=== PATIENT | female | born 1940 | race Caucasian/White ===

== ENCOUNTER → 2017-06-11 | Outpatient (CLI) | payer OTHER ==
[~2017-06-11] MED LIST: ASPI81TA28 PO; AZEL137S6 PO; COEN1CAP17 PO; METO-217 PO; MOME50SP5; MULT-260 PO
[2017-06-11 07:41] LABS: BASO % 0.6 %; BASO ABS # 0.03 K/uL (0-0.2); EOS % 5.3 %; EOS ABS # 0.28 K/uL (0-0.5); HEMATOCRIT 44.1 % (37-47); HEMOGLOBIN 14.8 g/dL (12.0-16.0); IG# 0.02 K/uL (0.00-0.02); LYMPH % 25.8 %; LYMPH ABS # 1.37 K/uL (1.2-3.4); MEAN CELL VOLUME 91.1 fL (80-100); MEAN CORPUSCULAR HEMOGLOBIN 30.6 pg (25-34); MEAN CORPUSCULAR HGB CONC 33.6 g/dl (32-36); MEAN PLATELET VOLUME 9.9 fL (7.4-10.4); MONO % 8.7 %; MONO ABS # 0.46 K/uL (0.11-0.59); NEUT % 59.2 %; NEUT ABS # 3.15 K/uL (1.4-6.5); PLATELET COUNT 212 K/uL (130-400); RED CELL DISTRIBUTION WIDTH CV 13.2 % (11.5-14.5); RED CELL DISTRIBUTION WIDTH SD 44.3 fL (36.4-46.3); WHITE BLOOD COUNT 5.31 K/uL (4.8-10.8)
[2017-06-11 08:04] LABS: ALBUMIN 3.7 gm/dl (3.4-5.0); ALT/SGPT 30 U/L (12-78); BLOOD UREA NITROGEN 23 mg/dl (7-18); CALCIUM 9.3 mg/dl (8.5-10.1); CARBON DIOXIDE 27 mmol/L (21-32); CREATININE 0.84 mg/dl (0.60-1.20); GLUCOSE 88 mg/dl (70-99); POTASSIUM 4.9 mmol/L (3.5-5.1); SODIUM 139 mmol/L (136-145)
[2017-06-11 08:36] LABS: ALKALINE PHOSPHATASE 106 U/L (45-117); AST/SGOT 23 U/L (15-37); TOTAL PROTEIN 7.8 gm/dl (6.4-8.2)
== END | disposition home or self-care (01) ==
LOC: C.LAB 07:17
PROVIDERS: ATTEND Nurse Practitioner Family
DX: C83.04 Small cell B-cell lymphoma, lymph nodes of axilla and upper limb (principal)

== ENCOUNTER 2024-01-14 10:20 | Inpatient (IN) ==
--- NOTE | 2023-12-05 10:40 | PAT Medication Instructions ---
Medication Instructions Date of Service December 05, 2023 Home Medications Allergy Injections 1 dose INJ UD Ivig Infusions 1 dose IV UD PRN Tums 750 mg PO UD PRN aspirin 81 mg capsule 81 mg PO QAM famotidine 20 mg tablet 20 mg PO BID ipratropium bromide 42 mcg (0.06 %) nasal spray 2 spray intranasal UD PRN levocetirizine 5 mg tablet (Xyzal) 5 mg PO HS metoprolol succinate 50 mg tablet,extended release 24 hr 50 mg PO QAM multivitamin 1 tab PO QAM triamcinolone acetonide 0.025 % topical cream 1 applic topical DAILY PRN Continue as directed ipratropium bromide 42 mcg (0.06 %) nasal spray 2 spray intranasal UD PRN(if needed) ASK your prescriber and surgeon Allergy Injections 1 dose INJ UD Ivig Infusions 1 dose IV UD PRN aspirin 81 mg capsule 81 mg PO QAM STOP taking 24 hours before surgery triamcinolone acetonide 0.025 % topical cream 1 applic topical DAILY PRN DO NOT take the morning of surgery Tums 750 mg PO UD PRN multivitamin 1 tab PO QAM Take morning of surgery With a small sip of water, OTHERWISE NOTHING TO EAT OR DRINK AFTER MIDNIGHT: famotidine 20 mg tablet 20 mg PO BID metoprolol succinate 50 mg tablet,extended release 24 hr 50 mg PO QAM Take evening before surgery famotidine 20 mg tablet 20 mg PO BID levocetirizine 5 mg tablet (Xyzal) 5 mg PO HS Other Notes If you have any questions please call us at [phone] or [phone] or [phone] or [phone]
--- NOTE | 2023-12-11 13:52 | Anesthesiology Consultation ---
Date of Service December 11, 2023 Assessment & Plan (1) Encounter for pre-operative examination: - Infectious disease screening: Per assessment on 12/11/23: No known recent infectious disease contacts or current infectious disease symptoms. - Outpatient joint assessment: Pt surgeon paperwork/patient, plan for overnight stay post-operatively (OR made aware). If surgeon requests review for outpatient joint pathway, would need to review further after preop EKG evaluation completed. - Anesthesia concern: Patient voices concern of post-op memory impairment and requests avoiding/limiting medications more likely to cause memory impairment if/when possible. - Abnormal preop EKG: Preop EKG notes LBBB. Not noted on available comparison EKG. No recent/previous Echo/hx per patient. Case reviewed with Dr. Soto. Recommend preop cardiac evaluation. Patient/surgeon's office made aware. [facility] personnel associate forwarded cardiac request to RUBINA Whitney. - Patient acceptable risk for surgery pending surgeon-ordered PCP clearance (Dr. Jaye High, "already done" per patient) and anesthesia-ordered cardiac clearance (RUBINA Whitney, appt 12/26). Chart Review Chart Review: Patient seen in Pre Admission Testing Teaching & Discussion Pre-Anesthesia Teaching/Discussion Notes: Instructed NPO after midnight before surgery,except medications with 15 cc of water. Medication instructions provided according to the PAT guidelines. History Surgery Operation Date: 01/14/24 11:10 Proposed Procedures p Right Total Knee Arthroplasty - Peewee Wilkins MD Height/Weight Height: 5 ft 5 in Weight: 96.1 kg Allergies Allergy/AdvReac Type Severity Reaction Status Date / Time aluminum Allergy Severe 3x3 Wheel Verified 11/26/23 13:53 after injection diphtheria toxoid,fluid Allergy Severe 3x3 Wheel Verified 11/26/23 13:53 after injection pneumococcal vaccine Allergy Severe 3x3 Wheel Verified 11/26/23 13:53 after injection sorbitan esters Allergy Severe 3x3 Wheel Verified 11/26/23 13:53 after injection diltiazem Allergy lower leg Verified 11/26/23 13:57 edema nitrofurantoin Allergy Hives Verified 11/26/23 13:57 [From Macrobid] pneumococcal 7-valent Allergy 3x3 Wheel Verified 11/26/23 13:57 conjugate to after [From Prevnar] injection meperidine AdvReac Intermediate Hallucinati Verified 12/11/23 14:12 ons Medications Home Medications Medication Instructions Recorded Confirmed Last Taken Allergy Injections 1 dose INJ UD 11/26/23 11/26/23 Unknown Ivig Infusions 1 dose IV UD PRN cold season 11/26/23 11/26/23 Unknown Tums 750 mg PO UD PRN gerd 11/26/23 11/26/23 Unknown aspirin 81 mg capsule 81 mg PO QAM 11/26/23 11/26/23 Unknown famotidine 20 mg tablet 20 mg PO BID 11/26/23 11/26/23 Unknown ipratropium bromide 42 mcg (0.06 2 spray intranasal UD PRN 11/26/23 11/26/23 Unknown %) nasal spray Congestion levocetirizine 5 mg tablet (Xyzal) 5 mg PO HS 11/26/23 11/26/23 Unknown metoprolol succinate 50 mg 50 mg PO QAM 11/26/23 11/26/23 Unknown tablet,extended release 24 hr multivitamin 1 tab PO QAM 11/26/23 11/26/23 Unknown triamcinolone acetonide 0.025 % 1 applic topical DAILY PRN eczema 11/26/23 11/26/23 Unknown topical cream Past Medical History Medical History Environmental and seasonal allergies Allergy shots every 3-4 weeks GERD (gastroesophageal reflux disease) Hiatal hernia History of asthma Follows with Dr. Yoo/Cornelius pulmonary Hypertension MGUS (monoclonal gammopathy of unknown significance) Non Hodgkin's lymphoma Dx 2014, hx Rituxin Follows with CCP Post-nasal drip Spinal stenosis Thyroid nodule Under surveillance by PCP/CCP Exercise / Class Metabolic Activity III < 4 Walking/Shop/Light housework Past Surgical History Surgical History History of right mastoidectomy Hx of appendectomy Hx of colonoscopy Hx of dilation and curettage Hx of tonsillectomy Social History Smoking Status: Never smoker Do You Dip or Chew Tobacco: No Hx Alcohol Use: Yes alcohol intake frequency: holidays/special occasions only Hx Substance Use: No substance use type: does not use Review of Systems Seasonal allergies- chronic congestion/at baseline. Patient denies chest pain, shortness of breath, fever, chills, cough, wheezing, palpitations. Physical Exam Vital Signs BP 111/70 P 85 TEMP 99.5 SP02 95%RA RESP 16 Physical Full cervical extension range of motion. Full TMJ range of motion. TMD > 3.5 finger breaths Mallampati Score 1 Dentition: intact, + crowns Lungs: clear throughout to auscultation Cardiac: regular rate and rhythm, no murmurs noted Spine: normal Carotid arteries: negative bruit Extremities: wearing compression stockings Lab Results Anesthesia Preop Results Results Anesthesia Widget: WBC 6.26 K/ul (4.8-10.8) 12/11/23 Hgb 12.2 g/dl (12.0-16.0) 12/11/23 Hct 37.8 % (37.0-47.0) 12/11/23 Plt 308 K/uL (130-400) 12/11/23 Na 137 mmol/L (136-145) 12/11/23 K 4.2 mmol/L (3.5-5.1) 12/11/23 Cl 104 mmol/L (98-107) 12/11/23 CO2 26 mmol/L (21-32) 12/11/23 BUN 20 mg/dl (6-23) 12/11/23 Creat 0.72 mg/dl (0.6-1.2) 12/11/23 Glucose Level 87 mg/dl (70-99(Fasting)) 12/11/23 PT 10.5 Seconds (9.0-12.0) 12/11/23 PTT 25 Seconds (21-31) 12/11/23 INR 1.0 (0.9-1.1) 12/11/23 Blood Type O Negative 12/11/23 Antibody Screen NEGATIVE 12/11/23 Testing Laboratory Results UA (12/13/23): negative Electrocardiogram Date: 12/11/23 NSR at 78bpm. LBBB. Chest X-Ray Date: 12/11/23 FINDINGS: No pneumothorax. No pleural effusion. There is a moderate hiatus hernia. The cardiac silhouette is top normal in size. No focal lung consolidations to suggest a pneumonia. No evidence for pulmonary edema. There is a mildly tortuous thoracic aorta. No acute fractures. A few small bibasilar linear densities favor subsegmental atelectasis or scarring. IMPRESSION: No acute process within the chest. Small hiatus hernia.
--- NOTE | 2024-01-09 08:13 | History & Physical Report ---
Date of Service January 09, 2024 Assessment & Plan (1) DJD (degenerative joint disease) of knee: Plan: Right total knee replacement with patient's specific implants patient will be admitted for observation and plans to stay at the [facility] History of Present Illness Chief Complaint: Right knee pain Primary Care Provider: Jaye High MD Patient is an 83-year-old female with a long history of bilateral knee pain right greater than left. This associated with instability limping weakness and marked decrease in range of motion. She rates her pain as an 8 out of 10. She has tried both Visco and stem cell injections without relief. She requires a cane for all activities of daily living. She has radiographic evidence of severe end-stage arthritis of both knees and is admitted for elective knee replacement surgery. She has a history of non-Hodgkin's lymphoma. Allergies Allergy/AdvReac Type Severity Reaction Status Date / Time aluminum Allergy Severe 3x3 Wheel Verified 11/26/23 13:53 after injection diphtheria toxoid,fluid Allergy Severe 3x3 Wheel Verified 11/26/23 13:53 after injection pneumococcal vaccine Allergy Severe 3x3 Wheel Verified 11/26/23 13:53 after injection sorbitan esters Allergy Severe 3x3 Wheel Verified 11/26/23 13:53 after injection diltiazem Allergy lower leg Verified 11/26/23 13:57 edema nitrofurantoin Allergy Hives Verified 11/26/23 13:57 [From Macrobid] pneumococcal 7-valent Allergy 3x3 Wheel Verified 11/26/23 13:57 conjugate to after [From Prevnar] injection meperidine AdvReac Intermediate Hallucinati Verified 12/11/23 14:12 ons Home Medications Medication Instructions Recorded Confirmed Type Allergy Injections 1 dose INJ UD 11/26/23 11/26/23 History Ivig Infusions 1 dose IV UD PRN cold season 11/26/23 11/26/23 History Tums 750 mg PO UD PRN gerd 11/26/23 11/26/23 History aspirin 81 mg capsule 81 mg PO QAM 11/26/23 11/26/23 History famotidine 20 mg tablet 20 mg PO BID 11/26/23 11/26/23 History ipratropium bromide 42 mcg (0.06 2 spray intranasal UD PRN 11/26/23 11/26/23 History %) nasal spray Congestion levocetirizine 5 mg tablet (Xyzal) 5 mg PO HS 11/26/23 11/26/23 History metoprolol succinate 50 mg 50 mg PO QAM 11/26/23 11/26/23 History tablet,extended release 24 hr multivitamin 1 tab PO QAM 11/26/23 11/26/23 History triamcinolone acetonide 0.025 % 1 applic topical DAILY PRN eczema 11/26/23 11/26/23 History topical cream Past Med/Surg History Problem List (Updated 01/09/24 @ 08:12 by Peewee Wilkins MD) DJD (degenerative joint disease) of knee Encounter for pre-operative examination Medical History Spinal stenosis Thyroid nodule Under surveillance by PCP/CCP Hiatal hernia History of asthma Follows with Dr. Yoo/Cornelius pulmonary Environmental and seasonal allergies Allergy shots every 3-4 weeks Post-nasal drip Hypertension GERD (gastroesophageal reflux disease) MGUS (monoclonal gammopathy of unknown significance) Non Hodgkin's lymphoma Dx 2014, hx Rituxin Follows with CCP Surgical History History of right mastoidectomy Hx of dilation and curettage Hx of tonsillectomy Hx of appendectomy Hx of colonoscopy Social History Smoking Status: Never smoker Second Hand Exposure: No; Do You Dip or Chew Tobacco: No; Tobacco Cessation Education Requested by Patient: No Hx Alcohol Use: Yes Hx Substance Use: No Preferred Language: Tanzanian Communication Ability: Effective Drying Room Attendant Required: No Beliefs That Will Affect Care: None Current Living Situation: Alone Current Living Situation Comment: lives at [facility] in snf community; will stay at in rehab Other Information That Helps Us Care for You: No Feels Safe at Home: Yes Safety Concerns: Feels Safe At This Time Assistive Devices: Cane, Glasses and Other Assistive Devices Comment: glasses for driving; rollator in home Review of Systems Review of Systems: Knee pain and weakness Physical Exam Physical Exam: Weight 96 kg BMI 38 General: Obese woman who appears her stated age. HEENT: NCAT, EOMI, PERRLA. Neck: Supple no bruits Heart: Regular rate and rhythm no murmurs Lungs: Breath sounds clear and present in all leon Abdomen: Obese soft nontender bowel sounds positive Extremities: The right knee shows valgus deformity passive range of motion is 5 to 110 degrees flexion with 3 to 4 mm lateral laxity positive effusion and pain Neurological and vascular: Intact Results & Data Results & Data Vital Signs (Past 12 Hours) Blood pressure 130/78 Pulse 68
[~2024-01-14 10:20] MED LIST changes: -ASPI81TA28 PO; -AZEL137S6 PO; +BUPIVACAINE 0.5 % 5 MG/1 ML PF 10ML VIAL ONE; -COEN1CAP17 PO; -METO-217 PO; -MOME50SP5; -MULT-260 PO; +ROPIVACAINE 0.5% 5 MG/ML 30 ML VIAL ONE
[2024-01-14] MEDS: dexAMETHasone**PF** 10 MG/ML VIAL IV SCH (11:01)
[2024-01-14] MEDS: ACETAMINOPHEN 500 MG TAB PO SCH (11:01)
[2024-01-14] MEDS: traMADol HCL 50 MG TABLET PO SCH (11:02)
[2024-01-14] MEDS: CeleBREX 200 MG CAP PO SCH (11:03)
[2024-01-14] MEDS: FAMOTIDINE 20 MG TAB PO SCH (11:03)
[2024-01-14] MEDS: GABAPENTIN 300 MG CAP PO SCH (11:03)
[2024-01-14] MEDS: LR 60ML/HR IV SCH (11:04)
[2024-01-14] MEDS: METOPROLOL SUCC 50MG EXT REL TAB PO ONE (11:05)
[2024-01-14] MEDS: METOCLOPRAMIDE HCL 10 MG TABLET PO SCH (11:05)
[2024-01-14] MEDS: LR 500ML BOLUS, THEN 15ML/HR IV SCH (11:30)
[2024-01-14] MEDS ORDERED: MIDAZOLAM HCL 1 MG/ML 2ML VIAL ONE (12:00)
[2024-01-14] MEDS ORDERED: fentaNYL citrate PF 100 MCG/2 ML VIAL ONE (12:00)
--- NOTE | 2024-01-14 12:35 | History & Physical Bridge Note ---
Date of Service January 14, 2024 History & Physical Bridge Note I have examined the patient, reviewed the History & Physical and in the interval since the performance of the History & Physical I have noted the following changes of clinical significance: no changes noted
[2024-01-14] MEDS ORDERED: PROPOFOL IV EMULSION 10 MG/ML 20 ML VIAL IV ONE (12:59)
[2024-01-14] MEDS ORDERED: ONDANSETRON INJ 2 MG/ML 2 ML VIAL ONE (12:59)
[2024-01-14] MEDS: TRANEXAMIC ACID 1,000 MG **IV Pre-op IV SCH (13:05)
[2024-01-14] MEDS ORDERED: ONDANSETRON INJ 2 MG/ML 2 ML VIAL IV PRN ×2 (13:30→16:47)
[2024-01-14] MEDS ORDERED: ATROPINE SULFATE 0.1 MG/ML 10ML SYR IV PRN (13:30)
[2024-01-14] MEDS ORDERED: ePHEDrine sulfate 50 MG/ML AMP IV PRN (13:30)
[2024-01-14] MEDS: ceFAZolin 2000MG 2,000 MG/15 ML SYR IV SCH ×2 (13:31→21:34)
[2024-01-14] MEDS ORDERED: PHENYLEPHRINE HCL 10 MG/ML VIAL ONE (13:57)
[2024-01-14] MEDS: ROPIV 0.5% 246mg, Ketorolac 30mg, EPINEPHrine 0.5mg in NSS INFIL SCH (14:28)
[2024-01-14] MEDS: TRANEXAMIC ACID 1,000 MG **IV Intra-op IV SCH (14:33)
--- NOTE | 2024-01-14 14:39 | Post Operative Brief Note ---
Immediate Post Op Note Date of Surgery January 14, 2024 Pre & Post Diagnosis Operation Date: 01/14/24 12:25 Pre-Op Diagnosis: Right Knee Degenerative Joint Disease Post-Op Diagnosis: Right Knee Degenerative Joint Disease I identified the patient and participated in the time-out.: Yes Procedure Operation Date: 01/14/24 12:25 Actual Procedures p Right Total Knee Arthroplasty(Right) - Peewee Wilkins MD Surgeon Peewee Wilkins MD Motorized [employer] Commanding Officer Garry Downs PA-C Estimated Blood Loss 100 Findings Consistent with Post-Op Diagnosis Drains Hemovac Drain
--- NOTE | 2024-01-14 14:52 | Operative Report ---
Post Operative Report Pre & Post Diagnosis Operation Date: 01/14/24 12:25 Pre-Op Diagnosis: Right Knee Degenerative Joint Disease Post-Op Diagnosis: Right Knee Degenerative Joint Disease I identified the patient and participated in the time-out.: Yes Procedure Operation Date: 01/14/24 12:25 Actual Procedures p Right Total Knee Arthroplasty(Right) - Peewee Wilkins MD Surgeon Peewee Wilkins MD Supervisor Alum Plant Garry Downs PA-C Estimated Blood Loss 100 Findings Consistent with Post-Op Diagnosis severe tricompartmental degenerative diseases with absence of the anterior cruciate ligament Specimens bone and cartilage fragments Complications none Indications components used: Tiwari [employer] Nephew journey 2 posterior stabilized knee system: Femur size 5 with Oxinium coating, tibia size 4 x 10, patella size 32 oval Description of Procedure following satisfactory spinal anesthesia the patient was supine on the operating room table. The right lower extremity was prepared with ChloraPrep and draped sterilely. A surgical timeout was performed. A midline incision was made and deepened through a fairly large and thick subcutaneous fat layer. Hemostasis was obtained. A median parapatellar arthrotomy was performed and the knee showed the changes above. Because of the heavy nature of the patient's leg and significant arthritis attention was first turned to the patella. The patella was freehand cut and siz ed for a 32 button. This did relax the extensor mechanism and enhance exposure to the lateral side of the knee. The posterior cruciate ligament was excised. The patient manage femoral block was applied. Femoral distal rotation and resection resetting completed. The 4-in-1 block was used to finish preparation of the femur. The meniscal fragments were excised. The patient manage tibial block was applied. Tibial resection was completed. Soft tissue balancing was completed in flexion and extension and a trial reduction with the above-mentioned components was performed. This showed good tensioning and stability on the collateral ligaments there was a slight amount of medial laxity but well within the acceptable limit. The patella did track slightly laterally and an extracapsular lateral release was performed which improved patellar tracking. The trial components were removed. The capsule was prepared with the orthopedic cocktail. After irrigation and drying the components were cemented using Griffin Z based cement cementing the tibia first, femur second, and patella third. When the cement had hardened the knee was checked and showed very similar stability and tracking. The wound was irrigated with 500 cc of experience irrigation. A Hemovac drain was placed. The arthrotomy was closed with interrupted [id number] sutures of 1 Vicryl and a running suture of 0 STRATAFIX. The subcutaneous tissues were closed in layers with 0 STRATAFIX deep. The skin was closed with surgical melonie. Dermabond Prineo and a negative pressure wound dressing were applied. This was followed by a compressive bandage. The patient was returned to her bed and taken to the recovery room in stable condition. Note: Garry GAXIOLA was present and assisted throughout due to the co mplicated nature of this case. He help with preparation and set up, he first assisted throughout. He assisted with hemostasis and exposure throughout the procedure. He also closed the capsular subcutaneous and skin layers and applied the postop dressing. I attest to the content of the Intraoperative Record and any orders documented therein. Any exceptions are noted below.
--- NOTE | 2024-01-14 15:25 | Anesthesiology Progress Note ---
Date of Service January 14, 2024 Anesthesia Post Procedure Vital Signs Vital Signs: Temp Pulse Pulse Resp BP BP Pulse Ox 01/14/24 15:20 67 18 126/58 L 95 01/14/24 15:10 68 11 L 123/63 94 01/14/24 15:00 36.8 C 71 18 105/57 L 95 01/14/24 10:49 36.9 C 87 20 176/91 H 98 O2 Del Method O2 Flow Rate 01/14/24 15:20 Room Air 01/14/24 15:10 Room Air 01/14/24 15:00 Oxymask 7 01/14/24 10:49 Room Air Transfer of Care Handoff Completed per policy Notes Mental Status: alert / awake / arousable and participated in evaluation Patient Amnestic to Procedure: Yes Nausea / Vomiting: adequately controlled Pain: adequately controlled Airway Patency, RR, SpO2: stable & adequate BP & HR: stable & adequate Hydration State: stable & adequate Neuraxial Anesthesia: was administered and sensory block is resolving Anesthetic Complications: no major complications apparent and Pt Satisfied with anesthetic care
[2024-01-14] MEDS: fentaNYL citrate PF 100 MCG/2 ML VIAL IV PRN (15:46)
[2024-01-14] MEDS ORDERED: NALOXONE HCL 0.4 MG/1 ML VIAL/CARP IV PRN (16:47)
[2024-01-14] MEDS ORDERED: bisacodyL 10 MG SUPP PR PRN (16:47)
[2024-01-14] MEDS ORDERED: METOCLOPRAMIDE HCL INJ 5 MG/ML 2 ML VIAL IV PRN (16:47)
[2024-01-14] MEDS ORDERED: MAGNESIUM HYDROXIDE SUSP 30 ML UDC PO PRN (16:47)
[2024-01-14] MEDS: traMADol HCL 50 MG TABLET PO PRN (17:25)
[2024-01-14] MEDS: SODIUM CHLORIDE 0.9% 1,000 ML IV SCH (17:27)
[2024-01-14] MEDS ORDERED: CALCIUM CARBONATE 500 MG CHEWABLE TAB PO PRN (18:36)
[2024-01-14] MEDS: DOCUSATE SODIUM 100 MG CAP PO SCH (21:35)
[2024-01-14] MEDS: CETIRIZINE HCL 10 MG TABLET PO SCH (21:35)
[2024-01-14] MEDS: ASPIRIN 81 MG ECTAB PO SCH (21:35)
[2024-01-14] MEDS: SENNA 8.6 MG TAB PO SCH (21:35)
[2024-01-15] MEDS ORDERED: traMADol HCL 50 MG TABLET PO SCH (06:00)
[2024-01-15] MEDS ORDERED: GABAPENTIN 300 MG CAP PO SCH (06:00)
[2024-01-15] MEDS ORDERED: LR 60ML/HR IV SCH (06:00)
[2024-01-15] MEDS ORDERED: ROPIV 0.5% 246mg, Ketorolac 30mg, EPINEPHrine 0.5mg in NSS INFIL SCH (06:00)
[2024-01-15] MEDS ORDERED: ceFAZolin 2000MG 2,000 MG/15 ML SYR IV SCH (06:00)
[2024-01-15] MEDS ORDERED: TRANEXAMIC ACID 1,000 MG **IV Pre-op IV SCH (06:00)
[2024-01-15] MEDS ORDERED: METOCLOPRAMIDE HCL 10 MG TABLET PO SCH (06:00)
[2024-01-15] MEDS ORDERED: TRANEXAMIC ACID 1,000 MG **IV Intra-op IV SCH (06:00)
[2024-01-15] MEDS ORDERED: FAMOTIDINE 20 MG TAB PO SCH (06:00)
[2024-01-15] MEDS ORDERED: ACETAMINOPHEN 500 MG TAB PO SCH (06:00)
[2024-01-15] MEDS ORDERED: CeleBREX 200 MG CAP PO SCH (06:00)
[2024-01-15] MEDS ORDERED: dexAMETHasone**PF** 10 MG/ML VIAL IV SCH (06:00)
[2024-01-15] MEDS ORDERED: LR 500ML BOLUS, THEN 15ML/HR IV SCH (06:00)
[2024-01-15 06:50] LABS: Hematocrit (blood only) 36.6 % (37.0-47.0); Hemoglobin 11.7 g/dl (12.0-16.0); Mean Corpuscular Hemoglobin 28.5 pg (25.0-34.0); Mean Corpuscular Volume 89.1 fL (80.0-100.0); Mean Platelet Volume 9.8 fL (9.4-12.4); Platelet Count 339 K/uL (130-400); RDW Coefficient of Variation 12.8 % (11.5-14.5); Red Blood Count 4.11 M/uL (4.20-5.40); White Blood Count 12.07 K/ul (4.8-10.8)
[2024-01-15 07:16] LABS: BUN Creatinine Ratio 32.6 (10-20); Calcium 9.1 mg/dl (8.6-10.3); Creatinine Clr Calc Pharmacy 54.2 ml/min; Est GFR (African American) 71.4 ml/min; Est GFR (Non-African American) 61.6 ml/min; Potassium 4.3 mmol/L (3.5-5.1)
[2024-01-15 07:37] VITALS: RESP 16
--- NOTE | 2024-01-15 07:37 | Orthopedic Progress Note ---
Date of Service January 15, 2024 Assessment & Plan (1) DJD (degenerative joint disease) of knee: Plan: Postop day 1 status post right total knee arthroplasty PT/OT protocols. Weightbearing as tolerated. DVT prophylaxis-aspirin p.o. twice daily, SCDs pain management as written. Mild leukocytosis likely secondary to preoperative steroids and/or surgical stress. Patient currently asymptomatic. DC planning-patient is planning for residing at a custodial facility at [facility]. Their facility for custodial is called the [facility] in [place]. Plans will be to discharge her today to the custodial facility. Case management to help facilitate. If patient requires 3 night stay prior to going, case management to notify us of any further needs. Admission and Anticipated Discharge Date Admission Date: January 14, 2024 Subjective Postop day 1 patient sitting up in bed awake and alert. No complaints this morning. Pain is controlled. Overall she is feeling well. She has been up during the night without difficulty. Physical Exam Physical Exam: Dressings are clean, dry, and intact. Diallo dressing appears to be functioning well. Breg Ice wrap has been applied and is working well. Calves are soft nontender. Neurovascular tact. Toes are mobile. Hemovac drainage was 30 cc this morning. Results & Data Vital Signs (Past 12 Hours) Vital Signs Temp Pulse Resp BP Pulse Ox O2 Del Method 01/15/24 02:15 36.9 C 67 18 121/68 96 Room Air 01/14/24 21:50 36.3 C L 87 16 129/87 95 Room Air Laboratory Results Laboratory Results WBC 12.07 K/ul (4.8-10.8) H 01/15/24 05:47 RBC 4.11 M/uL (4.20-5.40) L 01/15/24 05:47 Hgb 11.7 g/dl (12.0-16.0) L 01/15/24 05:47 Hct 36.6 % (37.0-47.0) L 01/15/24 05:47 MCV 89.1 fL (80.0-100.0) 01/15/24 05:47 MCH 28.5 pg (25.0-34.0) 01/15/24 05:47 MCHC 32.0 g/dL (32.0-36.0) 01/15/24 05:47 RDW Std Deviation 42.0 fL (36.4-46.3) 01/15/24 05:47 RDW Coeff of Verito 12.8 % (11.5-14.5) 01/15/24 05:47 Plt Count 339 K/uL (130-400) 01/15/24 05:47 MPV 9.8 fL (9.4-12.4) 01/15/24 05:47 Sodium 137 mmol/L (136-145) 01/15/24 05:47 Potassium 4.3 mmol/L (3.5-5.1) 01/15/24 05:47 Chloride 103 mmol/L (98-107) 01/15/24 05:47 Carbon Dioxide 26 mmol/L (21-32) 01/15/24 05:47 Anion Gap 8 (3-11) 01/15/24 05:47 BUN 28 mg/dl (6-23) H 01/15/24 05:47 Creatinine 0.86 mg/dl (0.6-1.2) 01/15/24 05:47 Est Cr Clr Drug Dosing 54.2 ml/min 01/15/24 05:47 Est GFR ( Amer) 71.4 ml/min 01/15/24 05:47 Est GFR (Non-Af Amer) 61.6 ml/min 01/15/24 05:47 BUN/Creatinine Ratio 32.6 (10-20) H 01/15/24 05:47 Glucose 117 mg/dl (70-99(Fasting)) H 01/15/24 05:47 Calcium 9.1 mg/dl (8.6-10.3) 01/15/24 05:47
[2024-01-15] MEDS: METOPROLOL SUCC 50MG EXT REL TAB PO SCH (08:30)
[2024-01-15] MEDS: CeleBREX 200 MG CAP PO SCH (08:30)
[2024-01-15] MEDS: FAMOTIDINE 20 MG TAB PO SCH (08:30)
[2024-01-15] MEDS: MULTIVITAMIN TAB PO SCH (10:22)
[2024-01-15 11:11] VITALS: BP 121/73; PULSE 76; TEMP 97.5; O2SAT 98
== END 2024-01-15 13:02 | DRG 470 ==
LOC: ASU 10:20 → 3E 14:43
DX: Z88.8 Allergy status to other drugs, medicaments and biological substances; Z88.1 Allergy status to other antibiotic agents; Z79.82 Long term (current) use of aspirin; Z79.899 Other long term (current) drug therapy; Z85.72 Personal history of non-Hodgkin lymphomas; M17.11 Unilateral primary osteoarthritis, right knee; Z88.7 Allergy status to serum and vaccine